=== PATIENT | female | born 1975 | race Caucasian/White ===

== ENCOUNTER 2017-01-25 11:06 | Emergency (ER) | payer OTHER ==
[~2017-01-25 11:06] MED LIST: DOCU-30 PO; ENOX80SY4 SQ; ENOX80SY5 SQ; HYDR-3240 PO; ONDA4TAB7 PO; OXYC-302 PO; WARF5TAB PO
== END 2017-01-25 11:37 | disposition left against medical advice (07) ==
LOC: ED 11:34
DX: R50.9 Fever, unspecified (principal)

== ENCOUNTER 2018-09-24 15:25 | Emergency (ER) | payer OTHER ==
[~2018-09-24] VITALS: Ht 165.1 cm; Wt 72.7 kg
[~2018-09-24 15:25] MED LIST changes: +DOCU-131 PO; -DOCU-30 PO
[2018-09-24] MEDS ORDERED: SODIUM CHLORIDE FLUSH 10ML SYR IVF ONE (16:00)
--- NOTE | 2018-09-24 16:13 | NUR ---
FIRST CONTACT WITH PT AT 1600: Pt c/o left chest and left rib pain for two months that feels, "like a splinter and dietrich, it is there all the time. I have had a PE once when I was , but I didn't know because I thought it was just symptoms. I saw a homeopathic nurse a few months back to treat me for my bronchitis and upper respiratory infection. I didn't get any antibiotics when I was seen by the doctors. I am still a little congested. I have been exercising still and meditating trying to figure out if it is my heart of my lungs." PIV established and labs obtained for IV start. 20 g PIV in Right AC . Pt connected to all monitors. All safety measures in place. Pt requests to use restroom at 1613. Pt ambulates to restroom with steady gait and balance. NADN. No defecits observed. Pt back to room after restroom.
[2018-09-24 16:20] LABS: BASOPHILS # (AUTO) 0.04 x10^3/uL (0-0.1); BASOPHILS % (AUTO) 1 % (0-1); EOSINOPHILS # (AUTO) 0.17 x10^3/uL (0-0.4); EOSINOPHILS % (AUTO) 2 % (1-7); LYMPHOCYTES # (AUTO) 1.68 x10^3/uL (1-3.4); LYMPHOCYTES % (AUTO) 21 % (22-44); MD NO; MEAN CORPUSCULAR HEMOGLOBIN 31.3 pg (27.0-34.8); MEAN CORPUSCULAR HGB CONC 33.4 g/dL (32.4-35.8); MEAN CORPUSCULAR VOLUME 93.8 fL (80-100); MEAN PLATELET VOLUME 7.6 fL (7.4-10.4); MONOCYTES % (AUTO) 6 % (2-9); NEUTROPHILS # (AUTO) 5.67 x10^3/uL (1.8-6.8); NEUTROPHILS % (AUTO) 70 % (42-75); PLATELET COUNT 262 x10^3/uL (130-400); RED BLOOD COUNT 4.44 x10^6/uL (3.82-5.3); RED CELL DISTRIBUTION WIDTH 13.5 % (9.6-15.2)
[2018-09-24 16:31] LABS: ALANINE AMINOTRANSFERASE 26 U/L (12-78); ANION GAP 7 mmol/L (5-15); CALCIUM 8.7 mg/dL (8.5-10.1); CHLORIDE 108 mmol/L (98-107); CREATININE 0.97 mg/dL (0.55-1.02)
[2018-09-24 16:36] LABS: ALKALINE PHOSPHATASE 49 U/L (45-117); BILIRUBIN,TOTAL 0.4 mg/dL (0.2-1.0); TOTAL PROTEIN 7.6 g/dL (6.4-8.2); TROPONIN I < 0.015 ng/mL (0.000-0.045)
--- NOTE | 2018-09-24 16:48 | NUR ---
Pt at ct at this time on [facility].
[2018-09-24] MEDS ORDERED: OMNIPAQUE 350 MG/ML, 100ML BOTTLE ONE (16:59)
--- NOTE | 2018-09-24 17:50 | NUR ---
Pt back to ED room at resting on [address]. CONNIE. No needs expressed from pt at this time. All safety measures in place. Pt remains connected to all monitors.
--- NOTE | 2018-09-24 19:08 | NUR ---
Provided bedside report to JIE Talley. All questions answered. JIE Talley to assume care of pt.
[2018-09-24 19:27] VITALS: BP 119/78
== END 2018-09-24 19:28 | disposition home or self-care (01) ==
LOC: ED 18:48
DX: R07.2 Precordial pain (principal)
CPT/HCPCS: 36415; 71045; 71275; 80053; 84484; 85025; 93005; 99284; Q9967